=== PATIENT | male | born 1940 | race Caucasian/White ===

== ENCOUNTER → 2016-05-20 | Outpatient (CLI) | payer OTHER ==
--- NOTE | 2016-05-20 14:44 | US ---
Limited ultrasound of the neck 1401 hours. History: Swelling and nodularity left upper neck. Rule out lymph node or other structural abnormality . Findings: Ultrasound over area palpable nodularity demonstrates underlying submandibular gland that m easures 3.5 x 1.7 x 3.3 cm. There is no evidence of internal mass or ductal dilatation. For compariso n, the right submandibular gland measures 4.1 x 1.4 x 4 cm. There is no lymphadenopathy within the neck. No abnormal fluid collections are seen. Impression: 1. Area of palpable concern corresponds to the left submandibular gland that is slightly thicker but otherwise relatively symmetric to the right side. 2. No lymphadenopathy. Clinical followup recommended.
== END ==
LOC: BMCIMAGING 13:30
PROVIDERS: ATTEND Nurse Practitioner Adult Health
DX: R22.1 Localized swelling, mass and lump, neck (principal)
CPT/HCPCS: 76536-PO

== ENCOUNTER → 2017-02-25 | Outpatient (CLI) | payer OTHER | LOC: BMCIMAGING 09:18 | PROVIDERS: ATTEND Physician Assistant | DX: K59.00 Constipation, unspecified (principal) ==

== ENCOUNTER → 2017-03-13 | Outpatient (CLI) | payer OTHER | LOC: FIMAGING 14:51 | PROVIDERS: ATTEND Internal Medicine | DX: Z13.820 Encounter for screening for osteoporosis (principal); E21.3 Hyperparathyroidism, unspecified ==

== ENCOUNTER → 2017-05-21 | Outpatient (CLI) | payer OTHER | LOC: BMCIMAGING 12:15 | PROVIDERS: ATTEND Family Medicine | DX: S42.025A Nondisplaced fracture of shaft of left clavicle, initial encounter for closed fracture (principal); R07.89 Other chest pain | CPT/HCPCS: 71101-PO ==

== ENCOUNTER → 2017-05-28 | Outpatient (CLI) | payer OTHER | LOC: BMCIMAGING 08:42 | PROVIDERS: ATTEND Orthopaedic Surgery Hand Surgery | DX: S42.032A Displaced fracture of lateral end of left clavicle, initial encounter for closed fracture (principal) ==

== ENCOUNTER → 2017-06-11 | Outpatient (CLI) | payer OTHER | LOC: BMCIMAGING 08:03 | PROVIDERS: ATTEND Orthopaedic Surgery Hand Surgery | DX: S42.032A Displaced fracture of lateral end of left clavicle, initial encounter for closed fracture (principal); S42.252A Displaced fracture of greater tuberosity of left humerus, initial encounter for closed fracture; S42.142A Displaced fracture of glenoid cavity of scapula, left shoulder, initial encounter for closed fracture ==

== ENCOUNTER → 2017-07-03 | Outpatient (CLI) | payer OTHER | LOC: BMCIMAGING 08:02 → EDSTATUS 08:03 | PROVIDERS: ATTEND Orthopaedic Surgery Hand Surgery | DX: S42.035D Nondisplaced fracture of lateral end of left clavicle, subsequent encounter for fracture with routine healing (principal) ==

== ENCOUNTER → 2017-07-31 | Outpatient (CLI) | payer OTHER | LOC: BMCIMAGING 07:59 | PROVIDERS: ATTEND Orthopaedic Surgery Hand Surgery | DX: S42.035D Nondisplaced fracture of lateral end of left clavicle, subsequent encounter for fracture with routine healing (principal) ==

== ENCOUNTER → 2018-10-08 | Outpatient (CLI) | payer OTHER | LOC: FIMAGING 11:15 ==

== ENCOUNTER 2018-10-22 15:13 | Inpatient (IN) | payer OTHER | END 2018-10-24 14:50 | disposition home or self-care (01) | LOC: F2W 18:17 ==